=== PATIENT | male | born 1985 | race African-American/Black ===

== ENCOUNTER 2017-12-16 17:16 | Emergency (ER) | payer BC ==
[2017-12-16 17:20] VITALS: BP 134/81; BMI 26.2
--- NOTE | 2017-12-16 18:50 | DR.URIAD ---
HPI - Time Seen Time seen: 18:45 - PCP Primary Care Physician: DELGADO - Complaint Chief Complaint Doctors Comments: History as stated. Patient presents with complaint of flu like symptoms. Chief Complaint:: PT. C/O BODY ACHES, FEVER, CHEST CONGESTION. PT. WENT TO [facility] WEDNESDAY AND TESTED NEGATIVE FOR INFLUENZA AND WAS GIVEN 2 INJECTIONS AND PLACED ON ANTIBIOTICS. PT. STATES THE BODY ACHES DID NOT BEGIN UNTIL YESTERDAY. - Source History Provided: Patient - Mode of Arrival Mode of Arrival: Ambulatory - Timing Onset of Chief Complaint: 12/13/17 PMH - PMH Past Medical History: No Past Surgical History: Yes Surgical History: Tonsillectomy - Family History History of Family Medical Conditions: No - Social History Does patient currently use any type of tobacco product: No Have you used tobacco products in the last 12 months: No Type of Tobacco Use: None Does any household member use tobacco: No Alcohol Use: Occasionally Do you use any recreational Drugs:: No Lives With: Family Lives Where: Home - infectious screening In the last 2 months have you had wt loss of >10#?: NO Have you had fever, night sweats or hemotysis?: No Have you traveled outside the country in the last 6 months?: No Isolation: Standard ROS - Review of Systems Eyes: No Symptoms Reported ENTM: No Symptoms Reported Respiratoy: No Symptoms Reported Cardiovascular: No Symptoms Reported Gastrointestinal/Abdominal: No Symptoms Reported Genitourinary: No Symptoms Reported Neurological: No Symptoms Reported Musculoskeletal: No Symptoms Reported Integumentary: No Symptoms Reported Hematologic/Lymphatic: No Symptoms Reported Endocrine: No Symptoms Reported Psychiatric: No Symptoms Reported All Other Systems: Reviewed and Negative PE - Vital Signs Vitals: Temperature 98.9 F Pulse Rate 64 Respiratory Rate 20 Blood Pressure 134/81 O2 Sat by Pulse Oximetry 97 - General Limitations: No Limitations General Appearance: Alert, In No Apparent Distress - Head Head Exam: Normal Inspection, Atraumatic - Eyes Eye exam: Normal Appearance, PERRL, EOMI - ENT ENT Exam: Normal Exam External Ear Exam: Normal External Inspection TM/Canal Exam: Bilateral Normal Nose Exam: Normal Nose Exam Nasal Speculum Exam: Bilateral Normal Mouth Exam: Normal Inspection Throat Exam: Normal Inspection - Neck Neck Exam: Normal Inspection, Full ROM - Chest Chest Inspection: Normal Inspection, Symmetric Chest Wall Rise - Respiratory Respiratory Exam: Normal Lung Sounds Bilat Respiratory Exam: Bilateral Clear to Auscultation - Cardiovascular Cardiovascular Exam: Regular Rate, Normal Rhythm - Abdominal Exam Abdominal Exam: Normal Inspection, Normal Bowel Sounds Abdominal Tenderness: negative: RUQ, RLQ, LUQ, LLQ, Epigastrium, Suprapubic, Diffuse, Mild, Moderate, Severe, Other - Extremeties Extremities Exam: Normal Inspection, Full ROM - Back Back Exam: Normal Inspection, Full ROM - Neurologic Neurological Exam: Alert, Oriented X3, CN II-XII Intact - Psychiatric Psychiatric Exam: Normal Affect - Skin Skin Exam: Warm, Dry, Intact Course - Reevaluation 1st: Unchanged ROR - Labs Reviewed Laboratory Results Reviewed?: Yes (influenza positive) - Diagnosis Discharge Problem: Influenza B - Discharge Plan Condition: Stable - Follow ups/Referrals Follow ups/Referrals: [facility] CUEVAS [Primary Care Provider] - 3 days - Instructions
== END 2017-12-16 20:10 | disposition home or self-care (01) ==
LOC: ER 17:33
DX: J10.1 Influenza due to other identified influenza virus with other respiratory manifestations (principal)
CPT/HCPCS: 87502; 99282